=== PATIENT | male | born 1950 | race African-American/Black ===

== ENCOUNTER 2016-09-10 09:30 | Inpatient (IN) ==
[2016-09-10] MEDS ORDERED: NITROGLYCERIN 2% OINT 1 INCH/GM PACK TOP STA (11:05)
[2016-09-10] MEDS ORDERED: ALUM/MAG/SIMETH/LIDO VISC 1:1 30 ML BOTTLE PO STA (11:05)
[2016-09-10] MEDS ORDERED: ONDANSETRON 4 MG/2 ML VIAL IV STA (11:05)
[2016-09-10] MEDS ORDERED: MORPHINE 2 MG/1 ML SYRINGE IV STA (11:05)
[2016-09-10] MEDS ORDERED: ASPIRIN 325 MG TABLET PO STA (11:05)
[2016-09-10] MEDS ORDERED: METOPROLOL TARTRATE 5 MG/5 ML VIAL IV STA (11:05)
--- NOTE | 2016-09-10 11:07 | EKG Report ---
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
[2016-09-10 11:14] LABS: Basophils % 0.2 % (0.0-0.8); Eosinophils # 0.2 10*3/uL (0.0-0.87); Eosinophils % 3.5 % (0.00-10.9); Immature Granulocytes % 0.7 %; Immature Granulocytes Absolute 0.03 #; Lymphocytes # 1.5 10*3/uL (1.4-4.0); Lymphocytes % 32.5 % (21.2-54.2); Mean Corpuscular HGB Conc 32.4 GM/DL (32-36); Mean Corpuscular Hemoglobin 30 PG (27-34); Mean Corpuscular Volume 93.2 FL (87-102); Monocytes # 0.4 10*3/uL (0.11-0.8); Monocytes % 7.9 % (1.7-12.7); Neutrophils # 2.5 10*3/uL (1.4-7.4); Neutrophils % 55.2 % (38.7-73.9); Platelet Count 270 T/CUMM (130-400); Red Blood Count 3.97 MC/CUMM (3.8-5.5); White Blood Count 4.6 T/CUMM (4-12)
--- NOTE | 2016-09-10 11:14 | Emergency Department Note ---
Miguelangel Sierra Brittany, am scribing for, and in the presence of, Yann Sharp MD 10:37. Lila Sierra Charles R, MD, personally performed the services described in this documentation, ascribed by Gayatri Means in my presence, and it is both accurate and complete . Arrival - Arrival Chief Complaint: Arrhythmia/Palpitations Stated Complaint: FLITTERING, CHEST PAINS ED Nursing Triage Note: reports that he has been having racing in his heart for over a week. went to [facility] last week and sent here for ekg and xray and was supposed to have a follow up but they havent called him back for appt. has some pain over left side of chest. Mode of Arrival: Ambulatory Limitations: No Limitations Source: Patient Time Seen by Provider: 09/10/16 10:16 - History of Present Illness HPI Narrative: This is a 66 y/o black male, who presents to the ED with c/o heart palpations which started 1 week ago. He states he has had problems with this in the past. He states he is having CP and SOB with the palpations. He has had nausea as well. He states at times he has experienced orthopnea. He states when he is at rest, it makes the palpations worse. Pt states he went to [facility] last week and was sent here for an EKG and X-ray. He was scheduled for a followup but has not received a call back yet. Pt has no other complaints/pain in the ED at this time. Pt has a PMHx of HTN, NIDDM, asthma, prostate problems, bowel obstructions, polyps, lung and colon cancer. Pt has had a cardiac cath in 2003 ( no stents were placed at this time. ), left lobectomy, abd surgery, colonoscopy, EGD, and prostate surgery. Pt has a family medical Hx of heart disease. Pt is a former smoker. Onset (ago): week(s) (Started one week ago) Consistency: constant Severity: moderate Allergies/Adverse Reactions: Allergies Allergy/AdvReac Type Severity Reaction Status Date / Time Penicillins Allergy Intermediate HIVES Verified 12/27/14 06:22 Home Medications: Home Medications Medication Instructions Recorded Confirmed Type Aspirin [Ecotrin] 160 mg PO DAILY 12/26/14 09/10/16 History Hydrochlorothiazide 12.5 mg PO DAILY 12/26/14 09/10/16 History Vitamin B Complex 1 each PO DAILY 12/26/14 09/10/16 History Metformin HCl 1,000 mg PO BID W/MEALS 09/10/16 09/10/16 History Metoprolol Tartrate 50 mg PO BID 09/10/16 09/10/16 History Vitamin E 400 unit PO DAILY 09/10/16 09/10/16 History Review of System - Review of System 12 point system: reviewed and no additional remarkable complaints except as stated - Review of System Cardiovascular: Present: chest pain, palpitations, dyspnea on exertion, orthopnea Gastrointestinal: Present: nausea. Absent: abdominal pain Medical,Surgical,& Family Hx - Medical History Cardio: History of: Hypertension Neurology: No history of: Seizures HEENT: History of: Eye Problem (GLASSES), Dental Problems (PARTIAL AND UPPER) Endocrine: History of: Diabetes Mellitus (NIDDM) Respiratory: History of: Asthma Genitourinary: History of: Prostate Problems (prostate cancer) Gastrointestinal: History of: Bowel Obstruction (surgery january 2014), Polyps Other: History of: Cancer (colon lung and prostate) - Surgical History Cardiac Surgeries: Sugical HX of: Cardiac Catheterization (2003) Thoracic Surgeries: Surgical HX of;: Lobectomy (lung ca mass LEFT) HEENT Surgeries: Patient denies: Eye Surgery, Thyroid Surgery, Tonsilectomy & Adenoidectomy Abdominal Surgeries: Surgical HX of: Abdominal Surgery (colon), Colonoscopy, EGD Reproductive Surgeries: Surgical HX of;: Prostate Surgery (biopsy) - Family History Family History: Reports;: Family Heart Disease (SISTER) - Social History Smoking Status: Former smoker Exam Vital Signs: Vital Signs Temperature 97.1 F L 09/10/16 10:03 Pulse Rate 98 H 09/10/16 12:16 Respiratory Rate 20 09/10/16 12:16 Blood Pressure 113/92 09/10/16 12:16 O2 Sat by Pulse Oximetry 100 09/10/16 12:16 - General General appearance: alert, in no apparent distress - Head Head exam: Present: atraumatic, normocephalic, normal inspection - Eye Eye exam: Present: normal appearance, PERRL, EOMI - ENT ENT exam: Present: normal exam, normal oropharynx, mucous membranes moist - Neck Neck exam: Present: normal inspection, full ROM, trachea midline. Absent: tenderness, thyromegaly - Chest Chest inspection: Present: normal inspection, symmetric chest wall rise. Absent : tenderness, rash, abscess - Respiratory Respiratory exam: Present: normal lung sounds bilaterally. Absent: prolonged expiratory phase, rales, respiratory distress, rhonchi, stridor, wheezes - Cardiovascular Cardiovascular exam: Present: tachycardia - Abdominal Exam Abdominal exam: Present: soft, normal bowel sounds. Absent: distention, tenderness, guarding, rebound, rigidity - Extremities Exam Extremities exam: Present: normal capillary refill, pedal edema (+1). Absent: joint swelling, calf tenderness - Back Exam Back exam: Present: normal inspection, full ROM. Absent: tenderness, muscle spasm, rashes - Neurological Exam Neurological exam: Present: alert, oriented X3, CN II-XII intact, normal gait, reflexes normal. Absent: motor sensory deficit - Psychiatric Psychiatric exam: Present: normal affect, normal mood. Absent: depressed, agitated, anxious - Skin Skin exam: Present: warm, dry, intact, normal color. Absent: cyanosis, diaphoresis Course - Consultations Consultation #1: Hospitalist will admit patient Time: 12:45 Results - Labs CBC & BMP: 09/10/16 10:17 09/10/16 10:17 Lab Results: I have reviewed the patients labs Labs: Laboratory Tests 09/10/16 09/10/16 10:17 10:17 Hgb 12.0 L Hct 37.0 L Chloride 110 H Glucose 138 H Albumin/Globulin Ratio 1.0 L - Diagnostic Findings Procedure: Chest x-ray: report reviewed by me (Normal chest x-ray) Disposition Clinical Impression: Palpitations, Chest pain Case discussed with: patient Disposition: Still a Patient Condition: Stable Time of Disposition: 12:47
[2016-09-10 11:24] LABS: Magnesium 1.9 MG/DL (1.8-2.4)
[2016-09-10 11:26] LABS: Albumin 3.4 G/DL (3.4-5.0); Bilirubin,Total 0.5 MG/DL (0.2-1.0); Calcium 8.5 MG/DL (8.5-10.1); Osmolality,Calculated 291.7 MOS/KG (273-304); Potassium 3.7 MMOL/L (3.5-5.1); Total Protein 6.5 G/DL (6.4-8.3)
[2016-09-10] MEDS ORDERED: ONDANSETRON 4 MG/2 ML VIAL ONE (11:40)
[2016-09-10] MEDS ORDERED: NITROGLYCERIN 2% OINT 1 INCH/GM PACK TOP ONE (11:40)
[2016-09-10] MEDS ORDERED: MORPHINE 2 MG/1 ML SYRINGE ONE (11:41)
[2016-09-10] MEDS ORDERED: METOPROLOL TARTRATE 5 MG/5 ML VIAL IV ONE (11:41)
[2016-09-10] MEDS ORDERED: ASPIRIN 325 MG TABLET ONE (11:41)
[2016-09-10] MEDS ORDERED: ALUM/MAG/SIMETH/LIDO VISC 1:1 30 ML BOTTLE PO ONE (11:41)
--- NOTE | 2016-09-10 11:48 | XRay Report ---
XR chest 1V portable Indication: Chest pain Comparison: 28 August 2016 Findings: The heart and mediastinum are normal in size and configuration. The pulmonary vascularity is normal in caliber. No lung infiltrates, effusions, pneumothorax or other abnormality is demonstrated. Impression: Normal chest x-ray PROCEDURE INTERPRETED AT [facility] DEPARTMENT OF RADIOLOGY Final Report Signed by: Dr. Joesph Acosta
[2016-09-10] MEDS ORDERED: DEXTROSE 50% 25 GM/50 ML VIAL IV PRN ×2 (12:46)
[2016-09-10] MEDS ORDERED: MORPHINE 2 MG/1 ML SYRINGE IV PRN (12:46)
[2016-09-10] MEDS ORDERED: ACETAMINOPHEN 325 MG TABLET PO PRN (12:46)
[2016-09-10] MEDS ORDERED: GLUCAGON 1 MG VIAL IM PRN ×2 (12:46)
[2016-09-10] MEDS ORDERED: ONDANSETRON 4 MG/2 ML VIAL IV PRN (12:46)
[2016-09-10] MEDS ORDERED: LACTULOSE 20 GM/30 ML UDCUP PO PRN (12:46)
[2016-09-10 13:29] LABS: Risk Ratio 4.46; Thyroid Stimulating Hormone 1.61 uIU/ml (0.358-3.74); VLDL CHOLESTEROL 42.2 MG/DL
--- NOTE | 2016-09-10 13:47 | Hospitalist History & Physical ---
Assessment and Plan - Time spent with patient Time spent with patient: Greater than 30 minutes (1) New onset atrial flutter Status: Acute Current Visit: Yes (2) Chest pain Status: Acute Current Visit: Yes (3) Palpitations Status: Acute Assessment and plan: admit to telemetry cardiology consult consider anticoagulation, defer to Dr. Senior serial EKG and troponins routine labs in AM DVT prophylaxis PRN meds SSI and accucheks while here maintain controlled rate further plan and addendum to follow per Dr. senior Current Visit: Yes History of Present Illness Chief complaint: palpitations, chest pain History of present illness: Mr. Ortiz is a 66 year old male who presents to the ER today with intermittent episodes of palpitations. He states he has been having left chest heaviness and palpitations for several months off and on. He went to his PCP and told her his symptoms, he had an outpt EKG and CXR done. He states that she, the PCP, got sick and never got back to him with the results and that he began to feel the palpitations more frequently and the chest heaviness was worse. He admits to having some diarrhea but denies shortness of breath, vomiting or diaphoresis. He has a PMH of HTN, DM, asthma, prostate problems, bowel obstructions, polyps, lung and colon cancer. He is in remission from Colon, prostate and lung CA. Dr. Jean Baptiste was his oncologist. He currently does not see a creative art therapist. He had a cardiac cath done back in 2003, no stents. PFH of CHF. He stopped smoking, drinking and doing drugs about 17 years ago. In reviewing the outpt EKG that was done and his EKG from today, he is noted to be in atrial flutter. He has no history of this. At present he is in a controlled rate at 95. Home Medications Medication Instructions Recorded Confirmed Type Aspirin [Ecotrin] 160 mg PO DAILY 12/26/14 09/10/16 History Hydrochlorothiazide 12.5 mg PO DAILY 12/26/14 09/10/16 History Vitamin B Complex 1 each PO DAILY 12/26/14 09/10/16 History Metformin HCl 1,000 mg PO BID W/MEALS 09/10/16 09/10/16 History Metoprolol Tartrate 50 mg PO BID 02/08/17 02/08/17 History Vitamin E 400 unit PO DAILY 09/10/16 09/10/16 History Allergies Allergy/AdvReac Type Severity Reaction Status Date / Time Penicillins Allergy Intermediate HIVES Verified 12/27/14 06:22 Medical,Surgical,& Family Hx - Medical History Cardio: History of: Hypertension Neurology: No history of: Seizures HEENT: History of: Eye Problem (GLASSES), Dental Problems (PARTIAL AND UPPER) Endocrine: History of: Diabetes Mellitus (NIDDM) Respiratory: History of: Asthma Genitourinary: History of: Prostate Problems (prostate cancer) Gastrointestinal: History of: Bowel Obstruction (surgery january 2014), Polyps Other: History of: Cancer (colon lung and prostate) - Surgical History Cardiac Surgeries: Sugical HX of: Cardiac Catheterization (2003) Thoracic Surgeries: Surgical HX of;: Lobectomy (lung ca mass LEFT) HEENT Surgeries: Patient denies: Eye Surgery, Thyroid Surgery, Tonsilectomy & Adenoidectomy Abdominal Surgeries: Surgical HX of: Abdominal Surgery (colon), Colonoscopy, EGD Reproductive Surgeries: Surgical HX of;: Prostate Surgery (biopsy) - Family History Family History: Reports;: Family Heart Disease (SISTER) - Social History Smoking Status: Former smoker 12 point system: reviewed and no additional remarkable complaints except as stated Exam - Constitutional General appearance: no acute distress - Head Head exam: Present: normal inspection, normocephalic - Eye Eye exam: Present: EOMI. Absent: scleral icterus Pupils: Present: TAN, normal accommodation - ENT ENT exam: Present: normal exam, normal oropharynx - Neck Neck exam: Present: normal inspection. Absent: lymphadenopathy - Respiratory Respiratory exam: Present: clear to auscultation bilaterally. Absent: wheezes - Cardiovascular Cardiovascular exam: Present: regular rate and rhythm. Absent: tachycardia - GI/Abdominal GI/Abdominal exam: Present: normal bowel sounds, soft. Absent: tenderness - Extremities Exam Extremities exam: Present: normal inspection, full ROM. Absent: edema - Back Exam Back exam: Present: normal inspection. Absent: muscle spasm - Neurological Exam Neurological exam: Present: alert, oriented X3 - Psychiatric Psychiatric exam: Present: normal affect, normal mood - Skin Skin exam: Present: normal color, warm, dry Results - Labs CBC & BMP: 09/10/16 10:17 09/10/16 10:17 Lab Results: I have reviewed the past 24 hour labs
--- NOTE | 2016-09-10 15:07 | EKG Report ---
Stationary ECG Study 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
--- NOTE | 2016-09-10 16:20 | Cardiology Consult Note ---
Assessment and Plan (1) Atrial flutter Status: Acute Assessment and plan: Duration is really unknown. This goes on possibly for 2 months or longer. His ventricular rates are fairly well stable at this time. He will probably need chronic anticoagulation at least for time for conversion. Prior to that though we need to carry out cart catheterization. Pain was echo and catheterization revealed our plans will be to attempt getting the patient back to sinus rhythm. Current Visit: Yes (2) Chest pain Status: Acute Assessment and plan: This is been going on for several weeks or months. He has chest heaviness and shortness of breath that may be related to his atrial flutter but certainly to be coronary disease with his multiple risk factors. Current Visit: Yes (3) Palpitations Status: Acute Assessment and plan: This is ongoing and progressive ambulated proximal certainly to his atrial flutter. Current Visit: Yes (4) Hypertension Status: Chronic Assessment and plan: Fairly stable on present medications. Current Visit: Yes (5) Diabetes mellitus Status: Chronic Current Visit: Yes Qualifiers: Diabetes mellitus type: type 2 (6) History of colon cancer Status: Chronic Assessment and plan: Post resection followed by Dr. Jean Baptiste Current Visit: Yes (7) History of prostate cancer Status: Chronic Assessment and plan: Post resection and followed by Dr. Jean Baptiste. Current Visit: Yes (8) History of lung cancer Status: Chronic Assessment and plan: Post resection followed by Dr. Jean Baptiste Current Visit: Yes History of Present Illness - Data of Consult Patient: new to practice Consult date: 09/10/16 Requesting Physician: Courtney Senior - Consult Narrative Reason for consult: atrial fibrillation/flutter History of present illness: Mr. Ortiz is a 66 year old male who gives a 2+ month history of having palpitation symptomatology and further discussion it may have been asked to gargle several months. He states is worse when he lies down. He denies that any time get more significant whether is it with exertion. With this he has some shortness of breath and at times has chest heaviness on the left side. The patient apparently was recently seen by his PCP and tells me that his Norvasc was stopped and he was started on metoprolol because of his palpitations. He is not clear though what the cause of his palpitations were. He came to the emergency room because the palpitations were seemed to get worse. He was found to be an atrial flutter with a variable ventricular response. He denies any prior cardiac history but did have a car catheterization in 2003. He is not sure who did it but apparently was unremarkable. His risk factors for cardiac disease is significant that he is a male he has hypertension as well as diabetes and dyslipidemia. He quit smoking 17 years ago. He has a significant family history of cardiac disease. At the present time the patient is stable without any specific complaints. The patient needs chronic catheterization. I discussed cardiac catheterization possible Intervention with the patient. We can probably approaching from the right radial artery. I discussed this procedure with him in detail reviewing the indications of how the procedure would be carried out. Also discussed the risk. I discussed cardiac catheterization and percutaneous coronary intervention with the patient and available family. I reviewed with them the indications for the procedure and the basis of how the procedure would be carried out. I also reviewed with them the risk of the procedure which include but not necessarily limited to access site bleeding, bruising, pain, swelling or vascular injury that may require emergency vascular surgery, blood transfusion, or thrombin injection. Also discussed the possibility of stroke, myocardial infarction, arrhythmia which may require electrocardioversion, and the possibility of dye reaction that would require medical therapy. Also discussed the possibility of coronary artery injury, ruptured, closure or perforation that may require emergency bypass surgery. We also discussed the possibility of from a major complication. They voice understanding and agree to proceed. CC: Courtney Senior MD - Home Medications and Allergies Home Medications: Home Medications Medication Instructions Recorded Confirmed Type Aspirin [Ecotrin] 160 mg PO DAILY 12/26/14 09/10/16 History Hydrochlorothiazide 12.5 mg PO DAILY 12/26/14 09/10/16 History Vitamin B Complex 1 each PO DAILY 12/26/14 09/10/16 History Metformin HCl 1,000 mg PO BID W/MEALS 09/10/16 09/10/16 History Metoprolol Tartrate 50 mg PO BID 09/10/16 09/10/16 History Vitamin E 400 unit PO DAILY 09/10/16 09/10/16 History Allergies/Adverse Reactions: Allergies Allergy/AdvReac Type Severity Reaction Status Date / Time Penicillins Allergy Intermediate HIVES Verified 12/27/14 06:22 Review of systems: Constitutional: Denies anorexia, chills, fatigue, fever, frequent falls, night sweats, weight gain, weight loss Eyes: Denies visual changes or loss of vision Ears: Denies decreased hearing, vertigo Nose, mouth and throat: Denies dysphagia, epistaxis, headaches, neck pain, tongue swelling, Neck: Denies thyromegaly or masses. No stiffness. Cardiovascular: as per HPI Respiratory: Denies cough, dyspnea, hemoptysis, dyspnea on exertion, wheezing, snoring Gastrointestinal: Denies abdominal pain, constipation, dyspepsia, dysphagia, hematemesis, hematochezia, melena, nausea, vomiting Genitourinary: Denies dysuria, hematuria, nocturia Musculoskeletal: Denies arthralgias, joint swelling, muscle weakness, myalgias Neurological: denies abnormal gait, abnormal speech, confusion, convulsions, frequent falls, headaches, memory loss, syncope Psychiatric: Denies anxiety, confusion, depression Endocrine: Denies cold intolerance, fatigue, heat intolerance Hematologic/Lymphatic: Denies easy bleeding, easy bruising Dermatologic: Denies Rash, itching, shingles Medical,Surgical,& Family Hx - Medical History Cardio: History of: Cardiac Dysrhythmia (palpitations with atrial flutter today) , Hypertension Neurology: No history of: Seizures HEENT: History of: Eye Problem (GLASSES), Dental Problems (PARTIAL AND UPPER) Endocrine: History of: Diabetes Mellitus (NIDDM) Respiratory: History of: Asthma, Lung Cancer Genitourinary: History of: Prostate Problems (prostate cancer) Gastrointestinal: History of: Bowel Obstruction (surgery january 2014), Polyps, Gastrointestinal Cancer (colon), GI Problems Other: History of: Cancer (colon lung and prostate) - Surgical History Cardiac Surgeries: Sugical HX of: Cardiac Catheterization (2003) Thoracic Surgeries: Surgical HX of;: Lobectomy (lung ca mass LEFT) HEENT Surgeries: Patient denies: Eye Surgery, Thyroid Surgery, Tonsilectomy & Adenoidectomy Abdominal Surgeries: Surgical HX of: Abdominal Surgery (colon), Colonoscopy, EGD Reproductive Surgeries: Surgical HX of;: Prostate Surgery (biopsy) - Family History Family History: Reports;: Family Heart Disease (SISTER) - Social History Smoking Status: Former smoker Have you smoked in the last 12 months: No Frequency of Alcohol Use: None Type of Drug Use: None Physical Examination Vital Signs Temp Pulse Resp BP Pulse Ox 97.1 F L 122 H 18 139/86 96 09/10/16 09:36 09/10/16 09:36 09/10/16 09:36 09/10/16 09:36 09/10/16 09:36 Other: General appearance: Obese, no acute distress Head exam: normal inspection, atraumatic Eye exam: Pupils are equal and reactive. EOMI. There is no trauma. Ear exam: Anatomically normal. Normal auditory acuity to conversation. Oral exam: No significant oral lesions. Neck exam: normal inspection no JVD. No carotid bruit. Trachea is in midline. Respiratory exam: clear to auscultation bilaterally posteriorly and anteriorly with good air movement. No rales, rhonchi or wheezes. Cardiovascular exam: Irregular rate and rhythm, with 1/6 systolic murmur toward the apex, no gallop or rub. No precordial lift. No bruits over the major arteries. Chest wall/torso: Anatomically normal. No tenderness, deformity Peripheral Pulses: 2+ throughout. GI/Abdominal exam: normal bowel sounds, soft and nontender, no abdominal bruits or pulsatile masses. Musculoskeletal/Extremities exam: normal inspection without edema or cyanosis. No deformities or trauma. Neurological exam: alert, oriented X3. There is no gross neurologic deficits. Psychiatric exam: normal affect, normal mood. Cognitive function is grossly intact. Skin exam: normal color, warm. No rashes or other skin lesions. Result/EKG - Labs CBC & BMP: 09/10/16 10:17 09/10/16 10:17 Lab Results: I have reviewed the past 24 hour labs (histology unremarkable, chemistry and CBC are normal, troponins are nondetectable, lipids unremarkable except for low HDL) Labs: Laboratory Results - last 24 hr 09/10/16 09/10/16 15:04 Unknown Troponin I < 0.015 Triglycerides 211 H Cholesterol 125 LDL Cholesterol 73.0 VLDL Cholesterol 42.2 HDL Cholesterol 28 L Heart Disease Risk Ratio 4.46 TSH 3rd Generation 1.610 - Impressions Impressions: ECG with atrial flutter and variable ventricular response with ventricular rates in the 90s.
[2016-09-10] MEDS ORDERED: MAGNESIUM SULF RIDER 2 GM in PREMIX 1 EACH IV PRN (16:32)
[2016-09-10] MEDS ORDERED: DIAZEPAM 5 MG TABLET PO ONE (16:32)
[2016-09-10] MEDS ORDERED: POTASSIUM CHLORIDE RIDER 10 MEQ in PREMIX 1 EACH IV PRN (16:32)
[2016-09-10] MEDS ORDERED: ASPIRIN 325 MG TABLET PO ONE (16:32)
[2016-09-10] MEDS ORDERED: diphenhydrAMINE CAP 25 MG CAPSULE PO ONE (16:32)
--- NOTE | 2016-09-10 16:43 | ECHO Report ---
Paul Ortiz Exam Date: 09/10/2016 15:37 Referring Physician: Technologist: Kisha Gonzalez RDCS Age: 66 Ht (in): Wt (lb): Gender: M Exam Location: [facility] Echo Indications: Atrial flutter, Chest pain, unspecified, Palpitations, Essential (primary) hypertension, NIDDM BP: / HR: Rhythm: Atrial flutter Technical Quality: IMPRESSIONS 1. Left ventricle is normal size and systolic function with ejection fraction of 60%. There is mild concentric left ventricular hypertrophy. 2. The other cardiac chambers are normal size and function. 3. Aortic valve may be minimally sclerotic but functionally normal. 4. Other valvular structures are normal. MEASUREMENTS (Male / Female) Normal Values 2D ECHO LV Diastolic Diameter PLAX 3.9 cm 4.2 - 5.9 / 3.9 - 5.3 cm LV Systolic Diameter PLAX 2.6 cm LV Fractional Shortening PLAX 32.7 % IVS Diastolic Thickness 1.3 cm 0.6 - 1.0 / 0.6 - 0.9 cm LVPW Diastolic Thickness 1.3 cm 0.6 - 1.0 / 0.6 - 0.9 cm RV Internal Dim ED PLAX 3.3 cm Aortic Root Diameter 4.5 cm LA Systolic Diameter LX 3.6 cm 3.0 - 4.0 / 2.7 - 3.8 cm DOPPLER TR Peak Velocity 267.0 cm/s TR Peak Gradient 28.5 mmHg FINDINGS Left Ventricle Normal left ventricular cavity size. Mild left ventricular hypertrophy. Left ventricular ejection fraction is estimated at 60 %. Right Ventricle The right ventricle is normal in size and function. Right Atrium The right atrium is normal in size. Left Atrium The left atrium is normal in size. Mitral Valve Morphologically normal mitral valve. Trace mitral valve regurgitation. Aortic Valve Aortic valve with mild sclerosis without stenosis or regurgitation. Tricuspid Valve Morphologically normal tricuspid valve. Trace to mild tricuspid valve regurgitation. Tricuspid regurgitation velocities suggest a PAP of 39 mmHg. Pulmonic Valve Morphologically normal pulmonic valve. Trace pulmonary valve regurgitation. Pericardium Normal pericardium without effusion. Aorta Normal ascending aorta dimension. Sanjeev Sylvester MD (Electronically Signed) Final Date: 10 September 2016 16:39
[2016-09-10] MEDS: INSULIN LISPRO 100 UNIT/ML SUBCUT SCH ×2 (17:31→21:43)
[2016-09-10] MEDS: SODIUM CHLORIDE 0.9% 1,000 ML IV SCH (19:30)
[2016-09-10] MEDS ORDERED: METOPROLOL TARTRATE 50 MG TABLET PO SCH (21:00)
[2016-09-11 06:38] LABS: Basophils % 0.2 % (0.0-0.8); Eosinophils # 0.1 10*3/uL (0.0-0.87); Hematocrit 34.6 VOL% (42.0-52.0); Hemoglobin 11.2 GM/DL (14.0-18.0); Immature Granulocytes % 0.4 %; Immature Granulocytes Absolute 0.02 #; Lymphocytes # 1.3 10*3/uL (1.4-4.0); Lymphocytes % 29.6 % (21.2-54.2); Mean Corpuscular HGB Conc 32.4 GM/DL (32-36); Mean Corpuscular Hemoglobin 30 PG (27-34); Mean Corpuscular Volume 93.3 FL (87-102); Mean Platelet Volume 8.8 FL (9.6-12.0); Monocytes # 0.3 10*3/uL (0.11-0.8); Monocytes % 7.5 % (1.7-12.7); Neutrophils # 2.7 10*3/uL (1.4-7.4); Neutrophils % 60.3 % (38.7-73.9); Platelet Count 225 T/CUMM (130-400); Red Blood Count 3.71 MC/CUMM (3.8-5.5); Red Cell Distribution Width 12.9 % (9.3-17.3); White Blood Count 4.5 T/CUMM (4-12)
--- NOTE | 2016-09-11 06:40 | EKG Report ---
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
[2016-09-11] MEDS ORDERED: DIAZEPAM 5 MG TABLET PO ONE (07:00)
[2016-09-11] MEDS ORDERED: diphenhydrAMINE CAP 25 MG CAPSULE PO ONE (07:00)
[2016-09-11] MEDS ORDERED: ASPIRIN 325 MG TABLET PO ONE (07:00)
[2016-09-11 07:06] LABS: Bilirubin,Total 0.7 MG/DL (0.2-1.0); Calcium 7.7 MG/DL (8.5-10.1); Osmolality,Calculated 292.4 MOS/KG (273-304); Potassium 4.2 MMOL/L (3.5-5.1); Total Protein 5.7 G/DL (6.4-8.3)
--- NOTE | 2016-09-11 07:14 | Cardiology Progress Note ---
Assessment and Plan (1) Atrial flutter Status: Acute Assessment and plan: Duration unknown but ventricular response still remains higher than we would like peeled we'll adjust his medications. Current Visit: Yes (2) Chest pain Status: Acute Assessment and plan: This certainly may be angina. The patient has multiple risk factors for this as described yesterday. We will pursue cardiac catheterization this morning. Again I discussed this procedure with the patient being indications have would be carried out as well as risk. Current Visit: Yes (3) Palpitations Status: Acute Assessment and plan: This is probably related to his atrial flutter and increased ventricular response. Current Visit: Yes (4) Hypertension Status: Chronic Assessment and plan: Blood pressures are stable as far. Current Visit: Yes (5) Diabetes mellitus Status: Chronic Current Visit: Yes Qualifiers: Diabetes mellitus type: type 2 (6) History of colon cancer Status: Chronic Assessment and plan: Post resection followed by Dr. Jean Baptiste Current Visit: Yes (7) History of prostate cancer Status: Chronic Assessment and plan: Post resection and followed by Dr. Jean Baptiste. Current Visit: Yes (8) History of lung cancer Status: Chronic Assessment and plan: Post resection followed by Dr. Jean Baptiste Current Visit: Yes Cardiology - PN: Subj Interval history: Patient doing well this morning. He has no complaints. He states he had a good night slept well. He's had no chest pain or shortness of breath. He is lying flat in the bed this morning when arrival. The patient's lab work with CBC reveals diminished H&H still. Indices are normal. The patient's chemistries are unremarkable this morning. No significant change since yesterday. His troponin is still remain less than detectable. His telemetry continued to show atrial flutter with increased ventricular response. We will need to increase his medications to manage is better. Exam (Progress Note) - Constitutional Vitals: Period Temp Pulse Resp BP Sys/Sandra Pulse Ox Last 24 Hr 96.7 F-98.2 F 80-119 16-20 104-125/65-94 93-100 Exam: General appearance: Obese, no acute distress lying flat in bed on my arrival. Head exam: normal inspection, atraumatic Eye exam: Pupils are equal and reactive. EOMI. There is no trauma. Ear exam: Normal auditory acuity to conversation. Neck exam: no JVD. No carotid bruit. Trachea is in midline. Respiratory exam: clear to auscultation bilaterally posteriorly and anteriorly with good air movement. No rales, rhonchi or wheezes. Cardiovascular exam: Irregular rate and rhythm, with 1/6 systolic murmur toward the apex, no gallop or rub. No precordial lift. No bruits over the major arteries. Chest wall/torso: Anatomically normal. No tenderness, deformity Peripheral Pulses: 2+ throughout. GI/Abdominal exam: normal bowel sounds, soft and nontender, no abdominal bruits or pulsatile masses. Musculoskeletal/Extremities exam: normal inspection without edema or cyanosis. No deformities or trauma. Neurological exam: alert, oriented X3. There is no gross neurologic deficits. Psychiatric exam: normal affect, normal mood. Cognitive function is grossly intact. Skin exam: normal color, warm. No rashes or other skin lesions. Result/EKG - Labs CBC & BMP: 09/11/16 06:33 09/11/16 06:33 Lab Results: I have reviewed the past 24 hour labs Labs: Laboratory Results - last 24 hr 09/10/16 09/10/16 09/10/16 15:04 17:29 19:13 WBC RBC Hgb Hct MCV MCH MCHC RDW Plt Count MPV Neut % (Auto) Lymph % (Auto) [place] % (Auto) Eos % (Auto) Baso % (Auto) Neut # (Auto) Lymph # (Auto) [place] # (Auto) Eos # (Auto) Baso # (Auto) Immature Gran % Nucleated RBC % Immature Gran # Nucleated RBCs # Sodium Potassium Chloride Carbon Dioxide Anion Gap BUN Creatinine GFR Calculation BUN/Creatinine Ratio Glucose POC Glucose 132 H Calculated Osmolality Calcium Total Bilirubin AST ALT Alkaline Phosphatase Troponin I < 0.015 < 0.015 Total Protein Albumin Globulin Albumin/Globulin Ratio Triglycerides Cholesterol LDL Cholesterol VLDL Cholesterol HDL Cholesterol Heart Disease Risk Ratio TSH 3rd Generation 09/10/16 09/11/16 09/11/16 Unknown 06:33 06:33 WBC 4.5 RBC 3.71 L Hgb 11.2 L Hct 34.6 L MCV 93.3 MCH 30 MCHC 32.4 RDW 12.9 Plt Count 225 MPV 8.8 L Neut % (Auto) 60.3 Lymph % (Auto) 29.6 [place] % (Auto) 7.5 Eos % (Auto) 2.0 Baso % (Auto) 0.2 Neut # (Auto) 2.7 Lymph # (Auto) 1.3 L [place] # (Auto) 0.3 Eos # (Auto) 0.1 Baso # (Auto) 0.0 Immature Gran % 0.4 Nucleated RBC % 0.0 Immature Gran # 0.02 Nucleated RBCs # 0.00 Sodium 147 H Potassium 4.2 Chloride 113 H Carbon Dioxide 25 Anion Gap 13.2 BUN 16 Creatinine 1.30 GFR Calculation 87 BUN/Creatinine Ratio 12.00 Glucose 102 POC Glucose Calculated Osmolality 292.4 Calcium 7.7 L Total Bilirubin 0.70 AST 15 ALT 19 Alkaline Phosphatase 46 Troponin I Total Protein 5.7 L Albumin 3.0 L Globulin 2.7 Albumin/Globulin Ratio 1.1 Triglycerides 211 H Cholesterol 125 LDL Cholesterol 73.0 VLDL Cholesterol 42.2 HDL Cholesterol 28 L Heart Disease Risk Ratio 4.46 TSH 3rd Generation 1.610 - Impressions Impressions: Telemetry continues to reveal atrial flutter with increased ventricular response.
--- NOTE | 2016-09-11 07:17 | History and Physical Update ---
Sedation H&P Update - History and Physical H&P was reviewed, the patient examined and there: are no changes in the patients condition since last H&P was completed. - Dictation Physical: refer to H&P completed by admitting physician - Physical Exam Mental Status: alert and oriented Heart: other (patient atrial flutter) Lung: clear to auscultation Abdomen: within normal limits Vitals: within normal limits - Sedation Plan for Sedation: moderate Patient Consent: Procedure disscussed with patient and patinet has consented., Risks and benefits were discussed with patient,including infection,, bleeding, injury to surrounding structures, seizure, temporary nerve, Patient understands and accepts potential risks/benefits and agrees to, proceed. ASA Class: III Airway Assessment: Class IV: Only hard palate visible
[2016-09-11] MEDS ORDERED: VERAPAMIL 5 MG/2 ML VIAL ONE (08:03)
[2016-09-11] MEDS ORDERED: NITROGLYCERIN DRIP 50 MG/250 ML BOTTLE IV ONE (08:03)
[2016-09-11] MEDS ORDERED: LIDOCAINE 1% 20 ML VIAL ONE (08:03)
[2016-09-11] MEDS ORDERED: fentaNYL 100 MCG/2 ML VIAL ONE (08:03)
[2016-09-11] MEDS ORDERED: MIDAZOLAM 2 MG/2 ML VIAL ONE (08:03)
[2016-09-11] MEDS ORDERED: ENOXAPARIN 60 MG/0.6 ML SYRINGE ONE (08:15)
[2016-09-11] MEDS ORDERED: SODIUM CHLORIDE 0.9% 1,000 ML IV SCH (09:00)
--- NOTE | 2016-09-11 09:14 | Cardiac Catheterization ---
Date of Procedure:: 09/11/16 Pre-op Diagnosis: Anginal quality chest pain with cardiac arrest risk factors for coronary disease. Post-op diagnosis: same Procedure: LEFT HEART CATHETERIZATION History: Patient with respect coronary disease now with anginal quality symptoms. Pre-Op diagnosis: Coronary disease with angina Postoperative diagnosis: Chest pain noncardiac with widely patent coronary arteries. Procedures: 1. Left heart catheterization. 2. Left ventricular angiogram. 3. Selective left and right coronary angiograms. 4. Left internal mammary artery angiogram. Equipment: Terumo 6 Barbadian radial glide arterial sheath, Terumo 6 Barbadian radial TIG 4.0 diagnostic. For the LAD with attention multiple Catheters including a AL-1 and AL-2, multipurpose catheter. A JL 5 catheter was needed to cannulate the left main coronary artery. Medium/Large TR band. Medications: Preoperative Benadryl and Valium given by mouth. Lidocaine 1% local anesthesia 1 mls administered by myself. Intraprocedure patient received Versed 2 mgs IVP, fentanyl 100 mcgs IVP, Verapamil 5 mg/NTG 200 mcg in 5 ml NS. Complications: None immediate. Contrast: Omnipaque 130 milliliters. Description of procedure: After informed consent the patient was given preoperative medications and brought to the catheterization laboratory where their right groin and right anterior wrist and forearm was prepped and draped in usual fashion. IV sedation was then obtained after which local anesthesia with lidocaine was administered over the right radial artery. Using the double wall needle the radial artery was cannulated. Microguidewire was advanced through the cannula into the radial artery. We exchanged for the radial artery sheath that was advanced over the microguidewire. Guidewire was removed. The diagnostic 6 Barbadian TIG 4.0 catheter was advanced and used to cross the aortic valve and left ventricular pressures were measured with LVEDP. Left ventricular angiogram was then obtained in the right oblique view. Pressures were again measured in the left ventricle with pullback pressures were then measured in the aortic root. This same catheter in multiple projections. We were unable to cannulate the left main coronary artery with the TIG catheter. We attempted to use a AL-1 and AL 2 as well as multipurpose diagnostic catheters with onset to cannulate the left main coronary artery. JL 5 catheter was able to cannulate the left main coronary artery and left angiograms of the left coronary system were obtained. The angiograms were then reviewed. The diagnostic catheter was then removed over the guidewire. The TR band was then placed in the usual fashion and hemostasis obtained. Hemodynamic data: LV 141/6 , EDP 20 ; post angio LV 108/29 , EDP 25 ; AO root 108/89 , mean 97 . Left ventricular angiogram: Left ventricle is normal size systolic function with ejection fraction of 60-65%. No segmental wall motion mellitus. No significant mitral regurgitation noted. The aortic valve appeared to be a tricuspid structure. Left main coronary artery angiogram: Left main coronary is short with perivascular calcification but without stenosis. This vessel is short and trifurcates into the LAD, circumflex artery, and ramus intermedius. Left anterior descending artery angiogram: The LAD is a large caliber vessel that extends to the posterior apex. First and was a medium large size vessel. The LAD proper branches without stenosis or disease. Circumflex artery angiogram: Circumflex artery is a medium large size vessel. The mass to be codominant with the RCA giving rise to the AV node artery. It is widely patent as is its branches without stenosis or disease. Ramus in mesangial gram: This is a medium large size vessel that covers a large area of myocardium. It is without stenosis or disease. Right coronary artery angiogram: RCA is a large caliber dominant vessel. It is without stenosis or disease. Impression: 1. Left ventricle is normal size systolic function with ejection fraction of 65%. 2. Left ventricular end-diastolic pressure is 29 mercury mildly elevated. 3. There is no significant mitral regurgitation. 4. Aortic valves a tricuspid structure a gradient. 5. Right coronary artery is dominant R at least codominant and is widely patent. 6. Left coronary system is widely patent without stenosis or disease. 7. There is some perivascular calcification of left main coronary artery but is widely patent without stenosis. Discussion: We will monitor the patient post catheterization. We will for other sources for his chest pain. Implants: See above Surgeon / Physician: Sanjeev Sylvester Monument Letterer: other (Gege CRUZ) Estimated blood loss: minimal Specimens: none sent Condition: stable - Medications / Follow-up
[2016-09-11] MEDS: INSULIN LISPRO 100 UNIT/ML SUBCUT SCH ×4 (10:57→20:45)
[2016-09-11] MEDS: ASPIRIN EC 81 MG TABLET PO SCH (10:58)
--- NOTE | 2016-09-11 11:19 | Hospitalist Progress Note ---
Assessment and Plan (1) New onset atrial flutter Status: Acute Assessment and plan: 1)aflutter- rate a little high, but he feels better. Changed to Sotolol this morning, not anticoagulated at this point though he will need it particularly if he's on Sotolol.- will discuss with cards. 2)chest pain- cath negative 3)cancer history 4)HTN- controlled Current Visit: Yes (2) Chest pain Status: Acute Current Visit: Yes (3) Hypertension Status: Chronic Current Visit: Yes (4) Diabetes mellitus Status: Chronic Current Visit: Yes Qualifiers: Diabetes mellitus type: type 2 (5) History of colon cancer Status: Chronic Current Visit: Yes (6) History of prostate cancer Status: Chronic Current Visit: Yes (7) History of lung cancer Status: Chronic Current Visit: Yes Hospitalist: Subjective Interval history: Mr Ortiz feels well post cath this morning. He has not had palpitations this morning. Heart rate in 90s-100, remains in aflutter. Exam - Constitutional Vitals: Period Temp Pulse Resp BP Sys/Sandra Pulse Ox Last 24 Hr 96.7 F-98.2 F 80-119 16-20 104-128/65-94 93-100 General appearance: no acute distress, over weight - Head Head exam: Present: normocephalic, atraumatic - Eye Eye exam: Present: EOMI. Absent: scleral icterus - Respiratory Respiratory exam: Present: clear to auscultation bilaterally - Cardiovascular Cardiovascular exam: Present: regular rate and rhythm - GI/Abdominal GI/Abdominal exam: Present: normal bowel sounds, soft. Absent: tenderness - Extremities Exam Extremities exam: Absent: edema - Neurological Exam Neurological exam: Present: alert, oriented X3 - Skin Skin exam: Present: warm, dry Results - Labs CBC & BMP: 09/11/16 06:33 09/11/16 06:33 Lab Results: I have reviewed the past 24 hour labs Quality Measures - VTE Contraindication to Pharmacological VTE Prophylaxis: Already on Theraputic Agent , No Prophylaxis Needed
[2016-09-11] MEDS: hydroCHLOROthiazide 12.5 MG CAPSULE PO SCH (11:26)
[2016-09-11] MEDS: MULTIVITAMIN (BEROCCA) TABLET PO SCH (11:26)
[2016-09-11] MEDS: SOTALOL 80 MG TABLET PO SCH ×2 (11:26→20:35)
[2016-09-11] MEDS: PANTOPRAZOLE 40 MG TABLET PO SCH (11:27)
[2016-09-11] MEDS: DILTIAZEM CD 120 MG CAPSULE PO SCH ×2 (11:27→20:37)
[2016-09-11] MEDS: VITAMIN E 400 UNIT CAPSULE PO SCH (11:27)
[2016-09-11] MEDS: SODIUM CHLORIDE 0.9% 1,000 ML IV SCH (12:37)
--- NOTE | 2016-09-11 13:45 | Event Note ---
Patient doing well post-cart catheterization. His right wrist is stable. Discussed findings with him. We will treat his atrial flutter medically as is his primary prolonged. Time continue anticoagulation. Will follow-up as an outpatient.
[2016-09-11] MEDS ORDERED: ZALEPLON 5 MG CAPSULE PO PRN (16:39)
[2016-09-11] MEDS: APIXABAN 5 MG TABLET PO SCH (20:35)
[2016-09-12 03:19] LABS: Basophils % 0.2 % (0.0-0.8); Eosinophils # 0.1 10*3/uL (0.0-0.87); Eosinophils % 1.8 % (0.00-10.9); Hematocrit 33.9 VOL% (42.0-52.0); Hemoglobin 10.9 GM/DL (14.0-18.0); Immature Granulocytes % 0.5 %; Immature Granulocytes Absolute 0.03 #; Lymphocytes # 1.3 10*3/uL (1.4-4.0); Lymphocytes % 23.1 % (21.2-54.2); Mean Corpuscular HGB Conc 32.2 GM/DL (32-36); Mean Corpuscular Hemoglobin 30 PG (27-34); Mean Corpuscular Volume 93.1 FL (87-102); Mean Platelet Volume 9.9 FL (9.6-12.0); Monocytes # 0.4 10*3/uL (0.11-0.8); Monocytes % 6.9 % (1.7-12.7); Neutrophils # 3.7 10*3/uL (1.4-7.4); Neutrophils % 67.5 % (38.7-73.9); Platelet Count 253 T/CUMM (130-400); Red Blood Count 3.64 MC/CUMM (3.8-5.5); Red Cell Distribution Width 12.7 % (9.3-17.3); White Blood Count 5.5 T/CUMM (4-12)
[2016-09-12 04:11] LABS: Calcium 7.8 MG/DL (8.5-10.1); Magnesium 1.9 MG/DL (1.8-2.4); Osmolality,Calculated 290.6 MOS/KG (273-304); Potassium 3.9 MMOL/L (3.5-5.1)
[2016-09-12 08:07] VITALS: BP 125/75
[2016-09-12] MEDS: ASPIRIN EC 81 MG TABLET PO SCH (08:41)
[2016-09-12] MEDS: SOTALOL 80 MG TABLET PO SCH (08:41)
[2016-09-12] MEDS: hydroCHLOROthiazide 12.5 MG CAPSULE PO SCH (08:41)
[2016-09-12] MEDS: INSULIN LISPRO 100 UNIT/ML SUBCUT SCH (08:42)
[2016-09-12] MEDS: PANTOPRAZOLE 40 MG TABLET PO SCH (08:42)
[2016-09-12] MEDS: DILTIAZEM CD 120 MG CAPSULE PO SCH (08:42)
[2016-09-12] MEDS: APIXABAN 5 MG TABLET PO SCH (08:42)
[2016-09-12] MEDS: VITAMIN E 400 UNIT CAPSULE PO SCH (08:42)
--- NOTE | 2016-09-12 09:01 | Cardiology Progress Note ---
<Nhi Huston E - Last Filed: 09/12/16 08:57> Assessment and Plan - Time spent with patient Time spent with patient: Less than 30 minutes (1) Palpitations Status: Acute Assessment and plan: Atrial fibrillation, atrial flutter. Rate controlled. Remained in atrial fib during the hospital stay. (2) Chest pain Status: Resolved Assessment and plan: Cardiac catheterization negative for obstructive disease. (3) New onset atrial flutter Status: Acute Assessment and plan: Eliquis 5mg orally BID. (4) History of colon cancer Status: Chronic (5) History of prostate cancer Status: Chronic (6) History of lung cancer Status: Chronic Cardiology - PN: Subj Interval history: He was admitted for new onset of atrial flutter. Dr. Sylvester saw the patient during the hospital stay. Patient had complaints concerning for angina and underwent cardiac catheterization 09/11/2016 with the following impression noted : Impression: 1. Left ventricle is normal size systolic function with ejection fraction of 65%. 2. Left ventricular end-diastolic pressure is 29 mercury mildly elevated. 3. There is no significant mitral regurgitation. 4. Aortic valves a tricuspid structure a gradient. 5. Right coronary artery is dominant R at least codominant and is widely patent. 6. Left coronary system is widely patent without stenosis or disease. 7. There is some perivascular calcification of left main coronary artery but is widely patent without stenosis. He tolerated the procedure well without complication and was returned to our telemetry unit in stable condition. Overnight, he has done well. He is anxious for release home. Echocardiogram reveals EF of 60% without significant valvular disease. He remains in atrial fib and has been started on Eliquis. His CBC overnight is stable. From a cardiology standpoint, we are agreeable for discharge this morning. He will follow-up with Dr. Sylvester in 2 weeks with the following labs to be obtained at that visit: BMP, magnesium and CBC. Also EKG. Cardiology discharge medications will include the following: Eliquis 5 mg orally twice a day Diltiazem CD 120 mg's orally twice a day Sotalol 80 mg orally twice a day HCTZ 12.5 mg orally daily Exam (Progress Note) - Constitutional Vitals: Period Temp Pulse Resp BP Sys/Sandra Pulse Ox Last 24 Hr 97.6 F-98.9 F 62-120 18-20 121-135/67-85 96-98 Exam: General: Appears well with no apparent distress. Pleasant and cooperative. Appears comfortable. HEENT: PERRL, normocephalic, atraumatic. Mucous membranes moist. No jaundice noted. Conjunctiva moist and clear, sclerae anicteric Neck: No JVD/HJR, no thyromegaly or lymphadenopathy noted. No carotid bruit appreciated Cardiac: Irregularly irregular rhythm, rate 68 bpm. No murmur rub or gallop. Lungs: Clear to auscultation without accessory muscle use to assist the respiratory pattern. Not requiring oxygen Abdomen: Soft, bowel sounds normoactive. Nontender and nondistended. No abdominal bruit or thrill noted. No masses noted. Musculoskeletal: No fluid collection. Decreased range of motion is noted. Extremities: Right wrist free of hematoma. capillary refill less than 3 seconds. No clubbing, cyanosis noted. No edema noted. Upper extremity pulses 2+. Lower extremity pulses 2+. Skin: No unusual lesions or rashes. No skin breakdown appreciated. Neuro: Awake, alert and oriented 3. Moves all extremities well without hemiparesis or paralysis. No essential tremor is appreciated. Result/EKG - Labs CBC & BMP: 09/12/16 02:15 09/12/16 02:15 Lab Results: I have reviewed the past 24 hour labs Labs: Laboratory Results - last 24 hr 09/11/16 09/11/16 09/12/16 15:37 19:53 02:15 WBC 5.5 RBC 3.64 L Hgb 10.9 L Hct 33.9 L MCV 93.1 MCH 30 MCHC 32.2 RDW 12.7 Plt Count 253 MPV 9.9 Neut % (Auto) 67.5 Lymph % (Auto) 23.1 [place] % (Auto) 6.9 Eos % (Auto) 1.8 Baso % (Auto) 0.2 Neut # (Auto) 3.7 Lymph # (Auto) 1.3 L [place] # (Auto) 0.4 Eos # (Auto) 0.1 Baso # (Auto) 0.0 Immature Gran % 0.5 Nucleated RBC % 0.0 Immature Gran # 0.03 Nucleated RBCs # 0.00 Sodium Potassium Chloride Carbon Dioxide Anion Gap BUN Creatinine GFR Calculation BUN/Creatinine Ratio Glucose POC Glucose 169 H 102 Calculated Osmolality Calcium Magnesium 09/12/16 09/12/16 02:15 07:32 WBC RBC Hgb Hct MCV MCH MCHC RDW Plt Count MPV Neut % (Auto) Lymph % (Auto) [place] % (Auto) Eos % (Auto) Baso % (Auto) Neut # (Auto) Lymph # (Auto) [place] # (Auto) Eos # (Auto) Baso # (Auto) Immature Gran % Nucleated RBC % Immature Gran # Nucleated RBCs # Sodium 146 H Potassium 3.9 Chloride 110 H Carbon Dioxide 24 Anion Gap 15.9 H BUN 12 Creatinine 1.10 GFR Calculation 107 BUN/Creatinine Ratio 10.00 Glucose 114 H POC Glucose 110 H Calculated Osmolality 290.6 Calcium 7.8 L Magnesium 1.9 - Diagnostic Findings Procedure: Chest x-ray: report reviewed by me - EKG EKG results: interpreted by me EKG shows: atrial fibrillation Quality Measures - VTE Contraindication to Pharmacological VTE Prophylaxis: Already on Theraputic Agent , No Prophylaxis Needed Specialty Discharge - Follow Up or Referrals Follow up with: [facility] [place], your doctor [Other] (5 days) Sanjeev Sylvester MD [Physician] - 09/29/16 2:00 pm (AT [facility] WITH A MG,BMP,CBC, AND A EKG ON THAT DATE) <Sanjeev Sylvester - Last Filed: 09/12/16 18:30> Assessment and Plan (1) Atrial flutter Status: Acute (2) Chest pain Status: Resolved (3) Palpitations Status: Acute (4) Hypertension Status: Chronic (5) Diabetes mellitus Status: Deleted Qualifiers: Diabetes mellitus type: type 2 (6) History of colon cancer Status: Chronic (7) History of prostate cancer Status: Chronic (8) History of lung cancer Status: Chronic Cardiology - PN: Subj Interval history: The patient personally interviewed and examined and chart reviewed. Discussed this case with Nhi Huston NP. The patient is being discharged we will follow -up on the patient as an outpatient. Exam (Progress Note) - Constitutional Vitals: Period Temp Pulse Resp BP Sys/Sandra Pulse Ox Last 24 Hr 98.0 F-98.9 F 62-120 18-20 121-135/67-85 96-98 Result/EKG - Labs CBC & BMP: 09/12/16 02:15 09/12/16 02:15 Labs: Laboratory Results - last 24 hr 02/04/1909/12/16 09/12/16 19:53 02:15 02:15 WBC 5.5 RBC 3.64 L Hgb 10.9 L Hct 33.9 L MCV 93.1 MCH 30 MCHC 32.2 RDW 12.7 Plt Count 253 MPV 9.9 Neut % (Auto) 67.5 Lymph % (Auto) 23.1 [place] % (Auto) 6.9 Eos % (Auto) 1.8 Baso % (Auto) 0.2 Neut # (Auto) 3.7 Lymph # (Auto) 1.3 L [place] # (Auto) 0.4 Eos # (Auto) 0.1 Baso # (Auto) 0.0 Immature Gran % 0.5 Nucleated RBC % 0.0 Immature Gran # 0.03 Nucleated RBCs # 0.00 Sodium 146 H Potassium 3.9 Chloride 110 H Carbon Dioxide 24 Anion Gap 15.9 H BUN 12 Creatinine 1.10 GFR Calculation 107 BUN/Creatinine Ratio 10.00 Glucose 114 H POC Glucose 102 Calculated Osmolality 290.6 Calcium 7.8 L Magnesium 1.9 09/12/16 07:32 WBC RBC Hgb Hct MCV MCH MCHC RDW Plt Count MPV Neut % (Auto) Lymph % (Auto) [place] % (Auto) Eos % (Auto) Baso % (Auto) Neut # (Auto) Lymph # (Auto) [place] # (Auto) Eos # (Auto) Baso # (Auto) Immature Gran % Nucleated RBC % Immature Gran # Nucleated RBCs # Sodium Potassium Chloride Carbon Dioxide Anion Gap BUN Creatinine GFR Calculation BUN/Creatinine Ratio Glucose POC Glucose 110 H Calculated Osmolality Calcium Magnesium
[2016-09-12] MEDS: MULTIVITAMIN (BEROCCA) TABLET PO SCH (09:28)
--- NOTE | 2016-09-12 09:59 | Discharge Summary ---
Hospital Course - Hospital Course Hospital Course: Mr Ortiz came in with palpitations that he had had for many months. He has new afib/flutter. His rate is controlled now on sotolol and diltiazem. His echo showed normal EF. He had a cath which showed widely patent coronaries. He is anticoagulated with Eliquis. He will follow up with Dr Sylvester as an outpatient. - Time spent with patient Time with patient DS: Less than 30 minutes Diagnosis - Discharge Diagnosis (1) New onset atrial flutter Status: Acute (2) Hypertension Status: Chronic (3) History of colon cancer Status: Chronic (4) History of prostate cancer Status: Chronic (5) History of lung cancer Status: Chronic Specialty Discharge - Follow Up or Referrals Follow up with: Sanjeev Sylvester MD [Physician] - 09/29/16 2:00 pm (AT CIS WITH A MG,BMP,CBC, AND A EKG ON THAT DATE) [facility] [place], your doctor [Other] (5 days) Discharge Plan - Discharge Data Disposition: Disch To Home/Self Care Condition at Discharge: Stable Discharge Diet: diabetic diet, heart healthy Activity: resume usual activities as tolerated - Discharge Medications New Apixaban [Eliquis] 5 mg PO BID #60 tablet Diltiazem Cd Cap [Cardizem CD] 120 mg PO BID #60 capsule Sotalol [Betapace] 80 mg PO BID #60 tablet Continue Vitamin B Complex 1 each PO DAILY Aspirin [Ecotrin] 160 mg PO DAILY Hydrochlorothiazide 12.5 mg PO DAILY Metformin HCl 1,000 mg PO BID W/MEALS Vitamin E 400 unit PO DAILY Discontinued Metoprolol Tartrate 50 mg PO BID - Follow Up or Referral Follow Up: [facility] [place], your doctor [Other] (5 days) Sanjeev Sylvester MD [Physician] - 09/29/16 2:00 pm (AT CIS WITH A MG,BMP,CBC, AND A EKG ON THAT DATE) - Forms/Instructions Instructions: Chest Pain (DC), Palpitations (DC) Exam - Constitutional Vitals: Period Temp Pulse Resp BP Sys/Sandra Pulse Ox Last 24 Hr 97.6 F-98.9 F 62-120 18-20 121-135/67-85 96-98 General appearance: no acute distress, over weight - Head Head exam: Present: normocephalic, atraumatic - Eye Eye exam: Present: EOMI. Absent: scleral icterus - Respiratory Respiratory exam: Present: clear to auscultation bilaterally - Cardiovascular Cardiovascular exam: Present: irregular rhythm - GI/Abdominal GI/Abdominal exam: Present: normal bowel sounds, soft. Absent: tenderness - Extremities Exam Extremities exam: Absent: edema - Neurological Exam Neurological exam: Present: alert, oriented X3 - Skin Skin exam: Present: warm, dry Discharge Results Labs on day of discharge: Labs from last 24 hours 09/12/16 09/12/16 09/12/16 07:32 02:15 02:15 WBC 5.5 RBC 3.64 L Hgb 10.9 L Hct 33.9 L MCV 93.1 MCH 30 MCHC 32.2 RDW 12.7 Plt Count 253 MPV 9.9 Neut % (Auto) 67.5 Lymph % (Auto) 23.1 Darke % (Auto) 6.9 Eos % (Auto) 1.8 Baso % (Auto) 0.2 Neut # (Auto) 3.7 Lymph # (Auto) 1.3 L Darke # (Auto) 0.4 Eos # (Auto) 0.1 Baso # (Auto) 0.0 Immature Gran % 0.5 Nucleated RBC % 0.0 Immature Gran # 0.03 Nucleated RBCs # 0.00 Sodium 146 H Potassium 3.9 Chloride 110 H Carbon Dioxide 24 Anion Gap 15.9 H BUN 12 Creatinine 1.10 GFR Calculation 107 BUN/Creatinine Ratio 10.00 Glucose 114 H POC Glucose 110 H Calculated Osmolality 290.6 Calcium 7.8 L Magnesium 1.9 09/11/16 09/11/16 19:53 15:37 WBC RBC Hgb Hct MCV MCH MCHC RDW Plt Count MPV Neut % (Auto) Lymph % (Auto) Darke % (Auto) Eos % (Auto) Baso % (Auto) Neut # (Auto) Lymph # (Auto) Darke # (Auto) Eos # (Auto) Baso # (Auto) Immature Gran % Nucleated RBC % Immature Gran # Nucleated RBCs # Sodium Potassium Chloride Carbon Dioxide Anion Gap BUN Creatinine GFR Calculation BUN/Creatinine Ratio Glucose POC Glucose 102 169 H Calculated Osmolality Calcium Magnesium DS: Provider Date of admission: 09/11/16 13:25 Primary care physician: . No PCP Attending physician on admission: Courtney Senior MD Discharging clinician: Courtney Senior MD
== END 2016-09-12 10:51 | disposition home or self-care (01) | DRG 287 ==
LOC: N.ED 09:30 → N.EDINP 09:30 → N.TELES 14:38
PROVIDERS: ADMIT Internal Medicine; ATTEND Internal Medicine
PROC: CLCCHCL (ICD-10-PCS; 2016-09-11 08:15)

== ENCOUNTER 2017-11-02 09:32 | Inpatient (IN) ==
[2017-11-02] MEDS ORDERED: MORPHINE 4 MG/1 ML VIAL IV PRN (10:11)
[2017-11-02] MEDS ORDERED: ENOXAPARIN 100 MG/ML SYRINGE SUBCUT STA (10:11)
[2017-11-02] MEDS ORDERED: ONDANSETRON 4 MG/2 ML VIAL IV PRN ×2 (10:11→14:36)
[2017-11-02] MEDS ORDERED: NITROGLYCERIN 2% OINT 1 INCH/GM PACK TOP STA (10:11)
[2017-11-02] MEDS ORDERED: KETOROLAC 30 MG/1 ML VIAL IV STA (10:11)
[2017-11-02] MEDS ORDERED: ASPIRIN 325 MG TABLET PO STA (10:11)
[2017-11-02 10:26] LABS: Basophils % 0.3 % (0.0-0.8); Eosinophils # 0.1 10*3/uL (0.0-0.87); Hematocrit 35.9 VOL% (42.0-52.0); Immature Granulocytes % 0.3 %; Immature Granulocytes Absolute 0.01 #; Lymphocytes # 1.2 10*3/uL (1.4-4.0); Lymphocytes % 30.3 % (21.2-54.2); Mean Corpuscular HGB Conc 33.4 GM/DL (32-36); Mean Corpuscular Hemoglobin 31 PG (27-34); Mean Platelet Volume 9.7 FL (9.6-12.0); Monocytes # 0.3 10*3/uL (0.11-0.8); Monocytes % 7.8 % (1.7-12.7); Neutrophils # 2.4 10*3/uL (1.4-7.4); Neutrophils % 59.3 % (38.7-73.9); Platelet Count 192 T/CUMM (130-400); Red Blood Count 3.86 MC/CUMM (3.8-5.5); Red Cell Distribution Width 13.3 % (9.3-17.3)
[2017-11-02 10:37] LABS: PT Patient Result 10.5 SECS
[2017-11-02] MEDS ORDERED: KETOROLAC 30 MG/1 ML VIAL ONE (10:44)
[2017-11-02] MEDS ORDERED: ENOXAPARIN 120 MG/0.8 ML SYRINGE SUBCUT ONE (10:44)
[2017-11-02] MEDS ORDERED: ASPIRIN 325 MG TABLET ONE (10:44)
[2017-11-02] MEDS ORDERED: NITROGLYCERIN 2% OINT 1 INCH/GM PACK TOP ONE (10:44)
[2017-11-02 11:00] LABS: Albumin 3.7 G/DL (3.4-5.0); Bilirubin,Total 1.2 MG/DL (0.2-1.0); Calcium 8.6 MG/DL (8.5-10.1); Potassium 3.7 MMOL/L (3.5-5.1); Total Protein 6.5 G/DL (6.4-8.3)
[2017-11-02 11:18] LABS: Apearance,Urine Slightly Hazy (Clear); Bilirubin,Urine Negative (Negative); Blood, Urine Negative (Negative); Glucose,Urine (UA) Negative (Negative); Ketones,Urine Negative (Negative); Nitrite,Urine Negative (Negative); Protein,Urine 100 MG/DL; Urine Color Yellow (Yellow); Urine Specific Gravity 1.011 (1.001-1.035); Urine Urobilinogen < 2.0 EU/DL (0.2-1.0)
[2017-11-02 11:22] LABS: Barbiturates Screen,Urine Negative (Negative); Benzodiazepines Screen,Urine Negative (Negative); Cannabinoid Screen,Urine Negative (Negative); Opiate Screen,Urine Negative (Negative); Phencyclidine Screen,Urine Negative (Negative)
[2017-11-02] MEDS ORDERED: MORPHINE 10 MG/1 ML VIAL IV PRN (14:36)
[2017-11-02] MEDS ORDERED: diphenhydrAMINE CAP 25 MG CAPSULE PO PRN (14:36)
[2017-11-02] MEDS ORDERED: guaiFENesin/DM ER 600-30 MG TABLET PO PRN (14:36)
[2017-11-02] MEDS ORDERED: DOCUSATE SODIUM 100 MG CAPSULE PO PRN (14:36)
[2017-11-02] MEDS ORDERED: GLUCAGON 1 MG VIAL IM PRN (14:36)
[2017-11-02] MEDS ORDERED: ACETAMINOPHEN 325 MG TABLET PO PRN ×2 (14:36)
[2017-11-02] MEDS ORDERED: DEXTROSE 50% 25 GM/50 ML VIAL IV PRN (14:36)
[2017-11-02] MEDS: SODIUM CHLORIDE 0.9% 1,000 ML IV SCH (16:45)
[2017-11-02] MEDS: PANTOPRAZOLE 40 MG TABLET PO SCH (16:45)
[2017-11-02] MEDS: INSULIN REGULAR 100 UNIT/ML SUBCUT SCH (17:17)
[2017-11-02] MEDS: DILTIAZEM CD 120 MG CAPSULE PO SCH (21:07)
[2017-11-02] MEDS: hydroCHLOROthiazide 12.5 MG CAPSULE PO SCH (21:12)
[2017-11-03 05:32] LABS: Basophils % 0.5 % (0.0-0.8); Eosinophils # 0.1 10*3/uL (0.0-0.87); Eosinophils % 2.9 % (0.00-10.9); Hematocrit 32.3 VOL% (42.0-52.0); Hemoglobin 10.7 GM/DL (14.0-18.0); Immature Granulocytes % 0.2 %; Immature Granulocytes Absolute 0.01 #; Lymphocytes # 1.6 10*3/uL (1.4-4.0); Lymphocytes % 38.8 % (21.2-54.2); Mean Corpuscular HGB Conc 33.1 GM/DL (32-36); Mean Corpuscular Hemoglobin 31 PG (27-34); Mean Corpuscular Volume 93.4 FL (87-102); Monocytes # 0.4 10*3/uL (0.11-0.8); Monocytes % 8.4 % (1.7-12.7); Neutrophils # 2.1 10*3/uL (1.4-7.4); Neutrophils % 49.2 % (38.7-73.9); Platelet Count 197 T/CUMM (130-400); Red Blood Count 3.46 MC/CUMM (3.8-5.5); Red Cell Distribution Width 13.3 % (9.3-17.3); White Blood Count 4.2 T/CUMM (4-12)
[2017-11-03] MEDS: SODIUM CHLORIDE 0.9% 1,000 ML IV SCH ×3 (06:10→20:59)
[2017-11-03 06:15] LABS: Calcium 7.9 MG/DL (8.5-10.1); Osmolality,Calculated 283.1 MOS/KG (273-304); Potassium 3.7 MMOL/L (3.5-5.1); Risk Ratio 4.42; Thyroid Stimulating Hormone 2.55 uIU/ml (0.358-3.74); VLDL CHOLESTEROL 21.8 MG/DL
[2017-11-03] MEDS: INSULIN REGULAR 100 UNIT/ML SUBCUT SCH ×2 (07:52→15:47)
[2017-11-03] MEDS ORDERED: ASPIRIN EC 81 MG TABLET PO SCH (09:00)
[2017-11-03] MEDS ORDERED: ENOXAPARIN 40 MG/0.4 ML SYRINGE SUBCUT SCH (09:00)
[2017-11-03] MEDS ORDERED: GLUCAGON 1 MG VIAL IM PRN (09:57)
[2017-11-03] MEDS ORDERED: DEXTROSE 50% 25 GM/50 ML VIAL IV PRN (09:57)
[2017-11-03] MEDS: DILTIAZEM CD 120 MG CAPSULE PO SCH (10:06)
[2017-11-03] MEDS: MULTIVITAMIN (BEROCCA) TABLET PO SCH (10:10)
[2017-11-03] MEDS: KETOROLAC 10 MG TABLET PO SCH ×3 (10:10→21:09)
[2017-11-03] MEDS: hydroCHLOROthiazide 12.5 MG CAPSULE PO SCH (10:11)
[2017-11-03] MEDS: PANTOPRAZOLE 40 MG TABLET PO SCH (10:11)
[2017-11-03] MEDS: VITAMIN E 400 UNIT CAPSULE PO SCH (10:11)
[2017-11-03] MEDS: SOTALOL 80 MG TABLET PO SCH (20:59)
[2017-11-04] MEDS: KETOROLAC 10 MG TABLET PO SCH ×2 (03:30→11:38)
[2017-11-04 05:55] LABS: Basophils % 0.3 % (0.0-0.8); Eosinophils # 0.1 10*3/uL (0.0-0.87); Eosinophils % 3.6 % (0.00-10.9); Hematocrit 33.8 VOL% (42.0-52.0); Hemoglobin 11.7 GM/DL (14.0-18.0); Immature Granulocytes % 0.3 %; Immature Granulocytes Absolute 0.01 #; Lymphocytes # 1.4 10*3/uL (1.4-4.0); Lymphocytes % 42.8 % (21.2-54.2); Mean Corpuscular HGB Conc 34.6 GM/DL (32-36); Mean Corpuscular Hemoglobin 32 PG (27-34); Mean Corpuscular Volume 90.9 FL (87-102); Mean Platelet Volume 9.8 FL (9.6-12.0); Monocytes # 0.3 10*3/uL (0.11-0.8); Neutrophils # 1.5 10*3/uL (1.4-7.4); Platelet Count 206 T/CUMM (130-400); Red Blood Count 3.72 MC/CUMM (3.8-5.5); Red Cell Distribution Width 13.2 % (9.3-17.3); White Blood Count 3.3 T/CUMM (4-12)
[2017-11-04 06:29] LABS: Calcium 7.8 MG/DL (8.5-10.1); Osmolality,Calculated 285.8 MOS/KG (273-304); Potassium 3.6 MMOL/L (3.5-5.1)
[2017-11-04] MEDS ORDERED: ASPIRIN EC 81 MG TABLET PO SCH (09:00)
[2017-11-04] MEDS: INSULIN REGULAR 100 UNIT/ML SUBCUT SCH (09:33)
[2017-11-04] MEDS: SODIUM CHLORIDE 0.9% 1,000 ML IV SCH (09:40)
[2017-11-04] MEDS ORDERED: PROPOFOL 200 MG/20 ML VIAL IV ONE (10:20)
[2017-11-04] MEDS ORDERED: LIDOCAINE 2% 5 ML VIAL ONE (10:20)
[2017-11-04] MEDS ORDERED: PANTOPRAZOLE 40 MG TABLET PO SCH (11:00)
[2017-11-04] MEDS: SOTALOL 80 MG TABLET PO SCH (11:37)
[2017-11-04] MEDS: hydroCHLOROthiazide 12.5 MG CAPSULE PO SCH (11:37)
[2017-11-04] MEDS: VITAMIN E 400 UNIT CAPSULE PO SCH (11:37)
[2017-11-04] MEDS: MULTIVITAMIN (BEROCCA) TABLET PO SCH (11:38)
[2017-11-04 11:46] VITALS: BP 180/97
[2017-11-26] MEDS ORDERED: CYANOCOBALAMIN 1000 MCG/1 ML VIAL IM SCH (09:00)
== END 2017-11-04 13:40 | disposition home or self-care (01) | DRG 392 ==
LOC: N.ED 09:32 → N.EDINP 13:04 → N.TELES 14:36
PROVIDERS: ADMIT Family Medicine; ATTEND Family Medicine

== ENCOUNTER 2019-05-08 08:14 | Observation (INO) ==
[2019-05-08] MEDS ORDERED: ASPIRIN 325 MG TABLET PO STA (09:07)
[2019-05-08 09:14] LABS: Basophils % 0.7 % (0.0-0.8); Eosinophils # 0.1 10*3/uL (0.0-0.87); Eosinophils % 2.5 % (0.00-10.9); Hematocrit 37.3 VOL% (42.0-52.0); Hemoglobin 12.1 GM/DL (14.0-18.0); Immature Granulocytes % 0.2 %; Immature Granulocytes Absolute 0.01 #; Lymphocytes # 1.4 10*3/uL (1.4-4.0); Lymphocytes % 35.7 % (21.2-54.2); Mean Corpuscular HGB Conc 32.4 GM/DL (32-36); Mean Platelet Volume 9.2 FL (9.6-12.0); Monocytes % 9.9 % (1.7-12.7); Platelet Count 215 T/CUMM (130-400); Red Blood Count 3.97 MC/CUMM (3.8-5.5); Red Cell Distribution Width 13.7 % (9.3-17.3)
[2019-05-08 09:40] LABS: Albumin 3.5 G/DL (3.4-5.0); Bilirubin,Total 0.6 MG/DL (0.2-1.0); Calcium 7.9 MG/DL (8.5-10.1); Osmolality,Calculated 289.7 MOS/KG (273-304); Total Protein 6.4 G/DL (6.4-8.3)
[2019-05-08] MEDS ORDERED: NITROGLYCERIN 2% OINT 1 INCH/GM PACK TOP ONE (10:10)
[2019-05-08] MEDS ORDERED: NITROGLYCERIN 2% OINT 1 INCH/GM PACK TOP STA (10:11)
[2019-05-08] MEDS ORDERED: MORPHINE 4 MG/1 ML VIAL IV STA (10:12)
[2019-05-08] MEDS ORDERED: ONDANSETRON 4 MG/2 ML VIAL ONE (10:15)
[2019-05-08] MEDS ORDERED: ONDANSETRON 4 MG/2 ML VIAL IV STA (10:18)
[2019-05-08] MEDS ORDERED: ACETAMINOPHEN 325 MG TABLET PO PRN (11:28)
[2019-05-08] MEDS ORDERED: GLUCAGON 1 MG VIAL IM PRN (11:37)
[2019-05-08] MEDS ORDERED: DEXTROSE 50% 25 GM/50 ML VIAL IV PRN (11:37)
[2019-05-08] MEDS: INSULIN REGULAR 100 UNIT/ML SUBCUT SCH ×2 (15:45→20:53)
[2019-05-08] MEDS: GABAPENTIN 300 MG CAPSULE PO SCH ×2 (15:45→20:52)
[2019-05-08] MEDS: DILTIAZEM CD 120 MG CAPSULE PO SCH ×2 (15:45→20:51)
[2019-05-08] MEDS: ENOXAPARIN 40 MG/0.4 ML SYRINGE SUBCUT SCH (15:45)
[2019-05-08] MEDS: SOTALOL 80 MG TABLET PO SCH (20:51)
[2019-05-09 05:31] LABS: Basophils % 0.7 % (0.0-0.8); Eosinophils # 0.1 10*3/uL (0.0-0.87); Eosinophils % 2.2 % (0.00-10.9); Hematocrit 33.1 VOL% (42.0-52.0); Hemoglobin 10.7 GM/DL (14.0-18.0); Immature Granulocytes % 0.2 %; Immature Granulocytes Absolute 0.01 #; Lymphocytes # 1.5 10*3/uL (1.4-4.0); Lymphocytes % 36.1 % (21.2-54.2); Mean Corpuscular HGB Conc 32.3 GM/DL (32-36); Mean Corpuscular Volume 95.1 FL (87-102); Mean Platelet Volume 9.3 FL (9.6-12.0); Monocytes % 9.1 % (1.7-12.7); Neutrophils % 51.7 % (38.7-73.9); Platelet Count 188 T/CUMM (130-400); Red Blood Count 3.48 MC/CUMM (3.8-5.5); Red Cell Distribution Width 13.7 % (9.3-17.3); White Blood Count 4.2 T/CUMM (4-12)
[2019-05-09 05:46] LABS: Calcium 7.7 MG/DL (8.5-10.1); Osmolality,Calculated 288.7 MOS/KG (273-304)
[2019-05-09] MEDS: INSULIN REGULAR 100 UNIT/ML SUBCUT SCH ×4 (08:23→20:22)
[2019-05-09] MEDS ORDERED: PANTOPRAZOLE 40 MG TABLET PO SCH (09:00)
[2019-05-09] MEDS: DILTIAZEM CD 120 MG CAPSULE PO SCH (12:14)
[2019-05-09] MEDS: CYANOCOBALAMIN 500 MCG TABLET PO SCH (13:02)
[2019-05-09] MEDS: SIMVASTATIN 20 MG TABLET PO SCH (13:02)
[2019-05-09] MEDS: CETIRIZINE 10 MG TABLET PO SCH (13:03)
[2019-05-09] MEDS: SOTALOL 80 MG TABLET PO SCH ×2 (13:03→21:20)
[2019-05-09] MEDS: GABAPENTIN 300 MG CAPSULE PO SCH ×3 (13:03→21:18)
[2019-05-09] MEDS: VITAMIN E 400 UNIT CAPSULE PO SCH (13:04)
[2019-05-09] MEDS: hydroCHLOROthiazide 12.5 MG CAPSULE PO SCH (13:04)
[2019-05-09] MEDS: ENOXAPARIN 40 MG/0.4 ML SYRINGE SUBCUT SCH (13:07)
[2019-05-09] MEDS: ASPIRIN EC 325 MG TABLET PO SCH (13:07)
[2019-05-09] MEDS ORDERED: DILTIAZEM CD 120 MG CAPSULE PO SCH (21:00)
[2019-05-09] MEDS: PANTOPRAZOLE 40 MG TABLET PO SCH (21:18)
[2019-05-10 04:50] LABS: Basophils % 0.5 % (0.0-0.8); Eosinophils # 0.1 10*3/uL (0.0-0.87); Eosinophils % 2.2 % (0.00-10.9); Hematocrit 33.4 VOL% (42.0-52.0); Immature Granulocytes % 0.2 %; Immature Granulocytes Absolute 0.01 #; Lymphocytes # 1.6 10*3/uL (1.4-4.0); Lymphocytes % 38.9 % (21.2-54.2); Mean Corpuscular HGB Conc 32.9 GM/DL (32-36); Mean Corpuscular Volume 93.6 FL (87-102); Mean Platelet Volume 10.1 FL (9.6-12.0); Monocytes % 8.7 % (1.7-12.7); Neutrophils % 49.5 % (38.7-73.9); Platelet Count 203 T/CUMM (130-400); Red Blood Count 3.57 MC/CUMM (3.8-5.5); Red Cell Distribution Width 13.4 % (9.3-17.3)
[2019-05-10 05:37] LABS: Calcium 8.2 MG/DL (8.5-10.1); Osmolality,Calculated 287.8 MOS/KG (273-304)
[2019-05-10] MEDS ORDERED: POTASSIUM CHLORIDE 20 MEQ TABLET PO ONE (06:33)
[2019-05-10 08:26] VITALS: BP 145/90
[2019-05-10] MEDS ORDERED: DILTIAZEM CD 120 MG CAPSULE PO SCH (09:00)
[2019-05-10] MEDS: GABAPENTIN 300 MG CAPSULE PO SCH (09:18)
[2019-05-10] MEDS: hydroCHLOROthiazide 12.5 MG CAPSULE PO SCH (09:18)
[2019-05-10] MEDS: SOTALOL 80 MG TABLET PO SCH (09:19)
[2019-05-10] MEDS: CETIRIZINE 10 MG TABLET PO SCH (09:20)
[2019-05-10] MEDS: SIMVASTATIN 20 MG TABLET PO SCH (09:20)
[2019-05-10] MEDS: VITAMIN E 400 UNIT CAPSULE PO SCH (09:20)
[2019-05-10] MEDS: CYANOCOBALAMIN 500 MCG TABLET PO SCH (09:20)
[2019-05-10] MEDS: PANTOPRAZOLE 40 MG TABLET PO SCH (09:20)
[2019-05-10] MEDS: ASPIRIN EC 325 MG TABLET PO SCH (09:21)
[2019-05-10] MEDS: INSULIN REGULAR 100 UNIT/ML SUBCUT SCH (09:23)
== END 2019-05-10 12:15 | disposition home or self-care (01) ==
LOC: N.ED 08:14 → N.EDINP 08:14 → SUATTDRO 11:28 → N.TELES 12:12
PROVIDERS: ADMIT Internal Medicine Geriatric Medicine; ATTEND Internal Medicine

== ENCOUNTER 2022-09-29 09:01 | Inpatient (IN) ==
[2022-09-29] MEDS ORDERED: HYDROmorphone 1 MG/1 ML SYRINGE IV STA (10:25)
[2022-09-29] MEDS ORDERED: ONDANSETRON 4 MG/2 ML VIAL IV STA (10:25)
[2022-09-29 10:32] LABS: Basophils % 0.8 % (0.0-0.8); Eosinophils # 0.1 10*3/uL (0.0-0.87); Eosinophils % 2.8 % (0.00-10.9); Hematocrit 37.2 VOL% (42.0-52.0); Hemoglobin 11.9 GM/DL (14.0-18.0); Immature Granulocytes % 0.3 %; Immature Granulocytes Absolute 0.01 #; Lymphocytes # 1.4 10*3/uL (1.4-4.0); Lymphocytes % 40.1 % (21.2-54.2); Mean Corpuscular Volume 97.9 FL (87-102); Mean Platelet Volume 9.3 FL (9.6-12.0); Monocytes # 0.4 10*3/uL (0.11-0.8); Monocytes % 10.5 % (1.7-12.7); Neutrophils % 45.5 % (38.7-73.9); Platelet Count 200 T/CUMM (130-400); Red Cell Distribution Width 13.1 % (9.3-17.3); White Blood Count 3.54 T/CUMM (4-12)
[2022-09-29 10:54] LABS: Albumin 3.5 G/DL (3.4-5.0); Bilirubin,Total 0.5 MG/DL (0.20-1.00); Calcium 8.6 MG/DL (8.5-10.1); Osmolality,Calculated 285.1 MOS/KG (273-304); Potassium 3.9 MMOL/L (3.5-5.1); Total Protein 6.5 G/DL (6.4-8.2)
[2022-09-29 10:56] LABS: Hyaline Casts,Urine 1 /LPF (0-3); Mucus,Urine Occasional /LPF (Occasional); RBC,Urine 1 /HPF (0-4); Squamous Epithelial Cell,Urine Occasional /HPF (0-10)
[2022-09-29 10:58] LABS: Bilirubin,Urine Negative (Negative); Blood, Urine Negative (Negative); Glucose,Urine (UA) Negative (Negative); Ketones,Urine Negative (Negative); Nitrite,Urine Negative (Negative); Protein,Urine 100 mg/dL (Negative); Urine Appearance Clear (Clear); Urine Color Yellow (Yellow); Urine Specific Gravity > 1.030 (1.001-1.035); Urine Urobilinogen 0.2 eU/dL (<2.0); Urine pH 5.5 (4.5-8.0)
[2022-09-29] MEDS: SODIUM CHLORIDE 0.9% 1,000 ML IV SCH ×2 (13:09→23:00)
[2022-09-29] MEDS ORDERED: ONDANSETRON 4 MG/2 ML VIAL IV PRN (13:38)
[2022-09-29] MEDS ORDERED: GLUCAGON 1 MG VIAL IM PRN (13:38)
[2022-09-29] MEDS ORDERED: DEXTROSE 10% 250 ML BAG IV PRN (13:38)
[2022-09-29] MEDS ORDERED: MAGNESIUM HYDROXIDE SUSP 30 ML UDCUP PO PRN (14:11)
[2022-09-29] MEDS: ENOXAPARIN 100 MG/ML SYRINGE SUBCUT SCH (15:51)
[2022-09-29] MEDS: POLYETHYLENE GLYCOL POWDER 17 GM PACK PO SCH ×2 (16:35→20:53)
[2022-09-29] MEDS: INSULIN LISPRO 100 UNIT/ML SUBCUT SCH ×2 (17:12→22:29)
[2022-09-29] MEDS: ASCORBIC ACID 500 MG TABLET PO SCH (20:49)
[2022-09-29] MEDS: DOCUSATE SODIUM 100 MG CAPSULE PO SCH (20:49)
[2022-09-29] MEDS: SIMVASTATIN 10 MG TABLET PO SCH (20:49)
[2022-09-29] MEDS ORDERED: HYDROmorphone 1 MG/1 ML SYRINGE IV ONE (21:45)
[2022-09-30] MEDS: SODIUM CHLORIDE 0.9% 1,000 ML IV SCH ×3 (05:27→16:26)
[2022-09-30] MEDS: ENOXAPARIN 100 MG/ML SYRINGE SUBCUT SCH ×2 (05:27→17:16)
[2022-09-30 06:32] LABS: Basophils % 0.2 % (0.0-0.8); Eosinophils # 0.1 10*3/uL (0.0-0.87); Eosinophils % 1.6 % (0.00-10.9); Hematocrit 37.6 VOL% (42.0-52.0); Hemoglobin 12.2 GM/DL (14.0-18.0); Immature Granulocytes % 0.5 %; Immature Granulocytes Absolute 0.02 #; Lymphocytes # 1.3 10*3/uL (1.4-4.0); Mean Corpuscular HGB Conc 32.4 GM/DL (32-36); Mean Corpuscular Volume 98.4 FL (87-102); Mean Platelet Volume 9.8 FL (9.6-12.0); Monocytes # 0.4 10*3/uL (0.11-0.8); Monocytes % 8.5 % (1.7-12.7); Neutrophils % 59.2 % (38.7-73.9); Platelet Count 200 T/CUMM (130-400); Red Blood Count 3.82 MC/CUMM (3.8-5.5); Red Cell Distribution Width 12.9 % (9.3-17.3); White Blood Count 4.34 T/CUMM (4-12)
[2022-09-30 06:51] LABS: Albumin 3.3 G/DL (3.4-5.0); Bilirubin,Total 0.7 MG/DL (0.20-1.00); Osmolality,Calculated 283.1 MOS/KG (273-304); Potassium 3.7 MMOL/L (3.5-5.1); Total Protein 6.3 G/DL (6.4-8.2)
[2022-09-30 06:52] LABS: Osmolality,Calculated 288.7 MOS/KG (273-304); Potassium 4.1 MMOL/L (3.5-5.1)
[2022-09-30] MEDS: INSULIN LISPRO 100 UNIT/ML SUBCUT SCH ×4 (06:53→22:42)
[2022-09-30] MEDS: POLYETHYLENE GLYCOL POWDER 17 GM PACK PO SCH ×2 (09:53→21:28)
[2022-09-30] MEDS: ASPIRIN EC 81 MG TABLET PO SCH (09:54)
[2022-09-30] MEDS: ASCORBIC ACID 500 MG TABLET PO SCH ×2 (09:55→21:23)
[2022-09-30] MEDS: ACETAMINOPHEN 325 MG TABLET PO PRN ×2 (17:22→21:22)
[2022-09-30] MEDS ORDERED: SOTALOL 80 MG TABLET PO SCH (21:00)
[2022-09-30] MEDS ORDERED: hydrALAZINE 25 MG TABLET PO SCH (21:00)
[2022-09-30] MEDS: SIMVASTATIN 10 MG TABLET PO SCH (21:23)
[2022-09-30] MEDS: DOCUSATE SODIUM 100 MG CAPSULE PO SCH (21:28)
[2022-10-01 04:45] LABS: Basophils % 0.5 % (0.0-0.8); Eosinophils # 0.1 10*3/uL (0.0-0.87); Eosinophils % 2.6 % (0.00-10.9); Hematocrit 34.4 VOL% (42.0-52.0); Hemoglobin 10.8 GM/DL (14.0-18.0); Immature Granulocytes % 0.3 %; Immature Granulocytes Absolute 0.01 #; Lymphocytes # 1.3 10*3/uL (1.4-4.0); Lymphocytes % 32.9 % (21.2-54.2); Mean Corpuscular HGB Conc 31.4 GM/DL (32-36); Mean Platelet Volume 9.7 FL (9.6-12.0); Monocytes # 0.4 10*3/uL (0.11-0.8); Monocytes % 10.2 % (1.7-12.7); Neutrophils % 53.5 % (38.7-73.9); Platelet Count 181 T/CUMM (130-400); Red Blood Count 3.51 MC/CUMM (3.8-5.5); Red Cell Distribution Width 12.8 % (9.3-17.3); White Blood Count 3.92 T/CUMM (4-12)
[2022-10-01 05:06] LABS: Osmolality,Calculated 285.7 MOS/KG (273-304); Potassium 3.4 MMOL/L (3.5-5.1)
[2022-10-01] MEDS: ENOXAPARIN 100 MG/ML SYRINGE SUBCUT SCH (06:15)
[2022-10-01] MEDS: INSULIN LISPRO 100 UNIT/ML SUBCUT SCH (07:45)
[2022-10-01] MEDS: SODIUM CHLORIDE 0.9% 1,000 ML IV SCH ×2 (07:54→07:55)
[2022-10-01] MEDS ORDERED: LOSARTAN 25 MG TABLET PO SCH (09:00)
[2022-10-01] MEDS: ASCORBIC ACID 500 MG TABLET PO SCH (09:00)
[2022-10-01] MEDS ORDERED: DILTIAZEM CD 120 MG CAPSULE PO SCH ×2 (09:00→21:00)
[2022-10-01] MEDS ORDERED: SOTALOL 80 MG TABLET PO SCH (09:00)
[2022-10-01] MEDS: ASPIRIN EC 81 MG TABLET PO SCH (09:01)
[2022-10-01] MEDS: POLYETHYLENE GLYCOL POWDER 17 GM PACK PO SCH (09:03)
[2022-10-01] MEDS ORDERED: POTASSIUM CHLORIDE 20 MEQ TABLET PO ONE (10:51)
[2022-10-01 12:03] VITALS: BP 152/73
[2022-10-01] MEDS ORDERED: APIXABAN 5 MG TABLET PO SCH (21:00)
[2022-10-08] MEDS ORDERED: APIXABAN 5 MG TABLET PO SCH (21:00)
== END 2022-10-01 12:00 | disposition home or self-care (01) | DRG 729 ==
LOC: N.ED 09:01 → N.2W 09:01 → SUATTDRO 09-30 08:48
PROVIDERS: ADMIT Internal Medicine; ATTEND Internal Medicine